=== PATIENT | female | born 1935 | race Caucasian/White ===

== ENCOUNTER 2016-06-03 15:31 | Inpatient (IN) | payer OTHER ==
[~2016-06-03] VITALS: Ht 144.8 cm; Wt 70.9 kg
[2016-06-03] MEDS: metFORMIN 500 MG TAB PO SCH ×2 (08:00→18:00)
[~2016-06-03 15:31] MED LIST: ASPI-664 PO; ATOR40TA68 PO; CEPH-443 PO; ESCI5TAB PO; GABA300C16 PO; LEVO25TA9 PO; LISI10TA2 PO; MAGN400T28 PO; MECL25TA2 PO; MELO-110 PO; METO-448 PO; MTF1000T PO; PANT40TA3 PO; RISP0.253 PO
[2016-06-03] MEDS ORDERED: LABETALOL HCL 20MG INJ IV ONE (16:00)
[2016-06-03 16:47] LABS: BASOPHILS % 0.7 % (0.0-2.0); EOSINOPHILS # 0.1 10^3/ul (0.0-0.5); EOSINOPHILS % 1.2 % (0.0-7.0); HEMATOCRIT 48.3 % (37.0-47.0); HEMOGLOBIN 16.3 g/dl (12.0-16.0); LYMPHOCYTES # 2.3 10^3/ul (0.8-2.9); LYMPHOCYTES % 36.6 % (15.0-51.0); MEAN CORPUSCULAR HEMOGLOBIN 28.3 pg (29.0-33.0); MEAN CORPUSCULAR HGB CONC 33.8 g/dl (32.0-37.0); MEAN CORPUSCULAR VOLUME 83.9 fl (82.0-101.0); MEAN PLATELET VOLUME 8.6 fl (7.4-10.4); MONOCYTE # 0.5 10^3/ul (0.3-0.9); MONOCYTES % 7.3 % (0.0-11.0); NEUTROPHIL # 3.4 10^3/ul (1.6-7.5); NEUTROPHILS % 54.2 % (39.0-77.0); PLATELET COUNT 216 10^3/UL (140-440); RED BLOOD COUNT 5.76 10^6/ul (4.20-5.40); RED CELL DISTRIBUTION WIDTH 13.9 % (11.5-14.5); UNCORRECTED WBC 6.2 10^3/ul (4.8-10.8); WHITE BLOOD COUNT 6.2 10^3/ul (4.8-10.8)
[2016-06-03 16:50] LABS: CONDITION 1
[2016-06-03 16:53] LABS: CHLORIDE 103 mmol/L (97-110); INR 0.97; POTASSIUM 4.1 mmol/L (3.5-5.1); PROTIME 12.9 Sec (12.2-14.2); SODIUM 143 mmol/L (135-144)
[2016-06-03 16:54] LABS: PARTIAL THROMBOPLASTIN TIME 29.9 Sec (25.0-35.0)
[2016-06-03 16:56] LABS: ANION GAP 19 (8-16); BLOOD UREA NITROGEN 25 mg/dl (7-20); CARBON DIOXIDE 25 mmol/L (21-31); CREATININE 1.19 mg/dl (0.44-1.00); GLUCOSE 223 mg/dl (70-220)
[2016-06-03 16:57] LABS: CALCIUM 9.6 mg/dl (8.4-10.2)
[2016-06-03 17:10] LABS: TROPONIN-I < 0.012 ng/ml (0.00-0.12)
[2016-06-03] MEDS ORDERED: hydrALAzine 20 MG INJ IV ONE (17:30)
--- NOTE | 2016-06-03 17:35 | RADRPT ---
PROCEDURE: XR Chest. CLINICAL INDICATION: Chest pain. TECHNIQUE: Single frontal chest x-ray. COMPARISON: Exam dated 09/30/2015. FINDINGS: There are atherosclerotic changes of the aorta. The cardiomediastinal silhouette is within normal l imits. The lungs are clear without focal consolidation, effusion, or pneumothorax. There are no ac yvonne osseous abnormalities. IMPRESSION: 1. No acute cardiopulmonary abnormality. 2. Vascular calcifications consistent with atherosclerosis. RPTAT: GG .Lux Black MD, Date Time Electronically viewed and signed by .Lux Black MD, on 06/03/2016 17:35 .P/
[2016-06-03] MEDS ORDERED: NACL 0.9% 3 ML SYG IV SCH (20:00)
[2016-06-03] MEDS ORDERED: NITROGLYCERIN (SL) 0.4 MG TAB SL PRN (20:00)
[2016-06-03] MEDS ORDERED: morphine 2 MG INJ IV PRN (20:00)
[2016-06-03] MEDS ORDERED: MECLIZINE 25 MG TAB PO PRN (20:00)
[2016-06-03] MEDS ORDERED: ONDANSETRON 4 MG INJ IV PRN ×2 (20:00→21:00)
[2016-06-03] MEDS ORDERED: GLUCAGON 1 MG INJ IM PRN (20:30)
[2016-06-03] MEDS ORDERED: DEXTROSE 50% 50 ML SYRINGE IV PRN ×2 (20:30)
[2016-06-03] MEDS ORDERED: GLUCOSE GEL 15 GRAM TUBE PO PRN ×2 (20:30)
[2016-06-03] MEDS ORDERED: GLUCOSE GEL 15 GRAM TUBE BUCCAL PRN (20:30)
[2016-06-03 20:49] LABS: CREATINE KINASE 54 IU/L (23-200)
[2016-06-03 20:59] LABS: CK-MB 1.29 ng/ml (0.0-2.4)
[2016-06-03] MEDS ORDERED: ACETAMINOPHEN 325 MG TAB PO PRN (21:00)
[2016-06-03 21:03] LABS: TROPONIN-I < 0.012 ng/ml (0.00-0.12)
[2016-06-03 21:10] VITALS: BP 177/75; RESP 20; Ht 144.8 cm; Wt 70.9 kg
[2016-06-03 21:14] VITALS: PULSE 87
--- NOTE | 2016-06-03 21:47 | ERA ---
ER Documentation Chief Complaint Date/Time DATE: 06/03/16 TIME: 21:37 Chief Complaint chest pain, headache; facial pain HPI This 80-year-old female presents with substernal chest pain is been present all day and does not radiate as well as a headache that began gradually yesterday and is now moderate. She also has mild shortness of breath denies nausea. States that she gets headaches sometimes her blood pressure is very high. Denies fever and chills. ROS All systems reviewed and are negative except as per history of present illness. Medications Home Meds Active Scripts Escitalopram Oxalate* (Lexapro*) 5 Mg Tablet, 5 MG PO QHS, #30 TAB Prov:DONNA DELEON MD 09/30/15 Risperidone* (Risperidone*) 0.25 Mg Tablet, 0.25 MG PO QHS for 30 Days, TAB Prov:DONNA DELEON MD 09/30/15 Cephalexin* (Keflex*) 500 Mg Capsule, 500 MG PO BID for 7 Days, CAP Prov:DONNA DELEON MD 09/30/15 Meclizine Hcl* (Antivert*) 25 Mg Tablet, 25 MG PO Q6H Y for dizziness, #20 TAB Prov:ELIGIO STAPLES MD 09/16/15 Meloxicam* (Mobic*) 15 Mg Tab, 15 MG PO DAILY, #30 TAB Prov:AMELIA MORENO 05/20/15 Metoprolol Tartrate* (Lopressor*) 25 Mg Tab, 25 MG PO BID, #60 TAB Prov:WILLIAM COCHRAN MD 04/17/15 Aspirin* (Aspirin* EC) 81 Mg Tabec, 81 MG PO DAILY, #30 Prov:WILLIAM COCHRAN MD 04/17/15 Reported Medications Magnesium Oxide* (Magnesium Oxide*) 400 Mg Tablet, 400 MG PO DAILY, TAB 04/12/15 Lisinopril* (Lisinopril*) 10 Mg Tablet, 10 MG PO DAILY, TAB 04/12/15 Pantoprazole* (Protonix*) 40 Mg Tablet.dr, 40 MG PO DAILY, TAB 04/12/15 Metformin* (Glucophage*) 1,000 Mg Tablet, 1000 MG PO BID W/ MEALS 01/09/13 Atorvastatin* (Atorvastatin*) 40 Mg Tablet, 40 MG PO DAILY 01/09/13 Levothyroxine Sodium (Levothroid) 25 Mcg Tablet, 25 MCG PO DAILY 01/09/13 Gabapentin* (Gabapentin*) 300 Mg Capsule, 300 MG PO DAILY 01/09/13 Allergies Allergies: Coded Allergies: No Known Allergy (Unverified , 09/30/15) PMhx/Soc History of Surgery: Yes Anesthesia Reaction: No Hx Neurological Disorder: Yes ( STROKE) Hx Respiratory Disorders: No Hx Cardiac Disorders: Yes ( HTN) Hx Psychiatric Problems: Yes (ANXIETY) Hx Miscellaneous Medical Probl: Yes (DM) Hx Alcohol Use: No Hx Substance Use: No Hx Tobacco Use: No Smoking Status: Never smoker Physical Exam Vitals Vital Signs Date Time Temp Pulse Resp B/P Pulse Ox O2 Delivery O2 Flow Rate FiO2 06/03/16 17:30 72 18 188/83 100 Room Air 06/03/16 15:36 98.0 87 19 234/111 96 Physical Exam Const: [] No distress, appears mildly uncomfortable Head: Atraumatic Eyes: Normal Conjunctiva, EOMI, PERRLA ENT: Normal External Ears, Nose and Mouth. Mucous membranes of the mouth moist Neck: Full range of motion..~ No meningismus. Resp: Clear to auscultation bilaterally Cardio: Regular rate and rhythm, no murmurs Abd: Soft, non tender, non distended. Normal bowel sounds Skin: No petechiae or rashes Back: No midline or flank tenderness Ext: No cyanosis, or edema Neur: Awake and alert and oriented 3, cranial 2 through 12 intact, no focal deficits Psych: Normal Mood and Affect Result Diagram: 06/03/16 1614 06/03/16 1614 Results 24 hrs Laboratory Tests Test 06/03/16 16:14 06/03/16 19:20 Activated Partial Thromboplast Time 29.9Sec Anion Gap 19 Basophils # 0.010^3/ul Basophils % 0.7% Blood Morphology Comment Blood Urea Nitrogen 25mg/dl Calcium Level 9.6mg/dl Carbon Dioxide Level 25mmol/L Chloride Level 103mmol/L Creatinine 1.19mg/dl Eosinophils # 0.110^3/ul Eosinophils % 1.2% Glucose Level 223mg/dl Hematocrit 48.3% Hemoglobin 16.3g/dl INR International Normalized Ratio 0.97 Lymphocytes # 2.310^3/ul Lymphocytes % 36.6% Mean Corpuscular Hemoglobin 28.3pg Mean Corpuscular Hemoglobin Concent 33.8g/dl Mean Corpuscular Volume 83.9fl Mean Platelet Volume 8.6fl Monocytes # 0.510^3/ul Monocytes % 7.3% Neutrophils # 3.410^3/ul Neutrophils % 54.2% Nucleated Red Blood Cells # 0.010^3/ul Nucleated Red Blood Cells % 0.0/100WBC Platelet Count 69583^3/UL Potassium Level 4.1mmol/L Prothrombin Time 12.9Sec Prothrombin Time Ratio 1.0 Red Blood Count 5.7610^6/ul Red Cell Distribution Width 13.9% Sodium Level 143mmol/L Troponin I < 0.012ng/ml < 0.012ng/ml White Blood Count 6.210^3/ul Creatine Kinase 54IU/L Creatine Kinase Index 2.4 Creatinine Kinase MB (Mass) 1.29ng/ml Current Medications Medications (Trade) Dose Ordered Sig/Lucero Route PRN Reason Start Time Stop Time Status Last Admin Dose Admin Labetalol HCl (Labetalol) 20 mg ONCE ONCE IV 06/03/16 16:00 06/03/16 16:01 DC 06/03/16 16:15 Hydralazine HCl (Apresoline) 10 mg ONCE ONCE IV 06/03/16 17:30 06/03/16 17:31 DC 06/03/16 17:35 IV Flush (NS 3 ml) 3 ml PER PROTOCOL IV 06/03/16 20:00 Ondansetron HCl (Zofran Inj) 4 mg Q6H PRN IV NAUSEA AND/OR VOMITING 06/03/16 20:00 Nitroglycerin (Nitroglycerin (Sl Tab) 0.4 Mg) 1 tab Q5M PRN SL CHEST PAIN 06/03/16 20:00 Acetaminophen (Tylenol Tab) 650 mg Q6H PRN PO PAIN LEVEL 1-3 OR FEVER 06/03/16 20:00 Morphine Sulfate (morphine) 2 mg Q4H PRN IV PAIN LEVEL 7-10 06/03/16 20:00 Meclizine HCl (Antivert) 25 mg Q6H PRN PO dizziness 06/03/16 20:00 Metformin HCl (Glucophage) 1,000 mg WITH BREAKFAST DINNE PO 06/03/16 08:00 Miscellaneous Information (* Miscellaneous Pharmacy Order) HYPOGLYCEMIA PROTOCOL w... ONCE ONCE XX 06/03/16 20:00 06/03/16 20:19 DC Miscellaneous Information (* Miscellaneous Pharmacy Order) Discontinue Glyburide, Glipizide,... ONCE ONCE XX 06/03/16 20:00 06/03/16 20:19 DC Miscellaneous Information (* Miscellaneous Pharmacy Order) Discontinue all previ... ONCE ONCE XX 06/03/16 20:00 06/03/16 20:19 DC Miscellaneous Information 1 ea NOTE XX 06/03/16 20:30 Glucose (Glutose) 15 gm Q15M PRN PO DECREASED GLUCOSE 06/03/16 20:30 Glucose (Glutose) 22.5 gm Q15M PRN PO DECREASED GLUCOSE 06/03/16 20:30 Dextrose (D50w Syringe) 25 ml Q15M PRN IV DECREASED GLUCOSE 06/03/16 20:30 Dextrose (D50w Syringe) 50 ml Q15M PRN IV DECREASED GLUCOSE 06/03/16 20:30 Glucagon (Glucagen) 1 mg Q15M PRN IM DECREASED GLUCOSE 06/03/16 20:30 Glucose (Glutose) 15 gm Q15M PRN BUCCAL DECREASED GLUCOSE 06/03/16 20:30 Procedures/MDM Elderly female with chest pain and hypertensive emergency. Had a been gradually and was reduced with blood pressure control, patient had normal neurological exam and I doubt subarachnoid hemorrhage secondary to the character of the headache is very gradual onset and significant improvement with blood pressure control. Cardiac workup was performed for the chest pain and the patient had a nonischemic EKG and initially negative troponin however acute cardiac seizures not completely ruled out yet as patient does have risk factors. She has laboratory evidence of dehydration with hemoconcentration with high hemoglobin and mild renal insufficiency. She is given a liter of normal saline. Also given aspirin and needed both labetalol and hydralazine to reduce her blood pressure. She was given aspirin. She had definite reduction in chest pain but does have some chest pain still so I'm going to admit her for further workup and trending of troponins. Spoke with Dr. Yadira Singleton who will be admitting. Critical care time 44 minutes: This includes management of hypertensive emergency in a patient with ongoing chest pain and headache, use of multiple vasoactive medications to lower blood pressure, labetalol and hydralazine at per IV, multiple visits patient's bedside to reassess status, chart review, discussion with admitting doctor. No billable procedures. 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 I do see significant calcification of the aorta. Departure Diagnosis: Primary Impression: Chest pain Additional Impressions: Hypertensive emergency Headache Dehydration Hyperglycemia Condition: Stable ERICK PINTO DO Jun 03, 2016 21:47
[2016-06-03] MEDS ORDERED: SOD CHLORIDE 0.9% 1,000 ML IV ONE (22:00)
[2016-06-03] MEDS: FAMOTIDINE 20 MG INJ IV SCH (22:22)
[2016-06-03] MEDS: ESCITALOPRAM 10 MG TAB PO SCH (22:22)
[2016-06-03] MEDS: ACETAMINOPHEN 325 MG TAB PO PRN (22:22)
[2016-06-03] MEDS: METOPROLOL 25 MG TAB PO SCH (22:23)
[2016-06-03] MEDS: INSULIN ASPART [NOVOLOG] 3 ML PEN SC SCH (22:30)
[2016-06-03] MEDS: RISPERIDONE 0.25 MG TAB PO SCH (22:33)
[2016-06-04] VITALS (12 sets, daily range): BP systolic 127–148; BP diastolic 60–76; PULSE 63–77; RESP 19–20
[2016-06-04 01:39] LABS: CK-MB 1.48 ng/ml (0.0-2.4)
[2016-06-04 01:43] LABS: TROPONIN-I 0.012 ng/ml (0.00-0.12)
[2016-06-04] MEDS: ACCUCHECK AT 2AM (Patients on SS coverage) XX SCH (02:00)
[2016-06-04 07:08] LABS: BASOPHILS % 0.7 % (0.0-2.0); EOSINOPHILS % 0.7 % (0.0-7.0); HEMATOCRIT 39.8 % (37.0-47.0); HEMOGLOBIN 13.3 g/dl (12.0-16.0); LYMPHOCYTES # 1.6 10^3/ul (0.8-2.9); LYMPHOCYTES % 29.1 % (15.0-51.0); MEAN CORPUSCULAR HEMOGLOBIN 28.4 pg (29.0-33.0); MEAN CORPUSCULAR HGB CONC 33.5 g/dl (32.0-37.0); MEAN CORPUSCULAR VOLUME 84.8 fl (82.0-101.0); MEAN PLATELET VOLUME 8.6 fl (7.4-10.4); MONOCYTE # 0.5 10^3/ul (0.3-0.9); MONOCYTES % 9.4 % (0.0-11.0); NEUTROPHIL # 3.3 10^3/ul (1.6-7.5); NEUTROPHILS % 60.1 % (39.0-77.0); PLATELET COUNT 198 10^3/UL (140-440); RED BLOOD COUNT 4.69 10^6/ul (4.20-5.40); UNCORRECTED WBC 5.5 10^3/ul (4.8-10.8); WHITE BLOOD COUNT 5.5 10^3/ul (4.8-10.8)
[2016-06-04 07:10] LABS: CONDITION 1
[2016-06-04 07:24] LABS: CREATINE KINASE 71 IU/L (23-200)
[2016-06-04 07:29] LABS: CK-MB 1.38 ng/ml (0.0-2.4)
[2016-06-04 07:33] LABS: TROPONIN-I < 0.012 ng/ml (0.00-0.12)
[2016-06-04 07:45] LABS: ALBUMIN 2.8 g/dl (3.3-4.9)
[2016-06-04 07:46] LABS: POTASSIUM 4.4 mmol/L (3.5-5.1)
[2016-06-04 07:48] LABS: ALBUMIN/GLOBULIN RATIO 1.07; BILIRUBIN,INDIRECT 0.5 mg/dl (0-1.1); BILIRUBIN,TOTAL 0.5 mg/dl (0.2-1.3); CREATININE 1.2 mg/dl (0.44-1.00); TOTAL PROTEIN 5.4 g/dl (6.1-8.1)
[2016-06-04 07:49] LABS: CALCIUM 8.8 mg/dl (8.4-10.2); CHOL/HDL RATIO 4.6 RATIO
[2016-06-04] MEDS: INSULIN ASPART [NOVOLOG] 3 ML PEN SC SCH ×4 (08:00→20:25)
[2016-06-04] MEDS: ATORVASTATIN 40 MG TAB PO SCH (09:00)
[2016-06-04] MEDS: FAMOTIDINE 20 MG INJ IV SCH (09:35)
[2016-06-04] MEDS: METOPROLOL 25 MG TAB PO SCH ×2 (09:35→20:22)
[2016-06-04] MEDS: MAGNESIUM OXIDE 400 MG TAB PO SCH (09:36)
[2016-06-04] MEDS: GABAPENTIN 300 MG CAP PO SCH (09:36)
[2016-06-04] MEDS: ASPIRIN 81 MG TAB PO SCH (09:36)
[2016-06-04] MEDS: LEVOTHYROXINE 25 MCG TAB PO SCH (09:36)
[2016-06-04] MEDS: LISINOPRIL 10 MG TAB PO SCH (09:36)
[2016-06-04] MEDS: MELOXICAM 15 MG TAB PO SCH (09:37)
[2016-06-04] MEDS: metFORMIN 500 MG TAB PO SCH ×2 (09:45→17:07)
[2016-06-04] MEDS: ENOXAPARIN 30 MG/0.3 ML SYG SC SCH (09:48)
--- NOTE | 2016-06-04 12:36 | HP ---
Date/Time of Note Date/Time of Note DATE: 06/04/16 TIME: 12:34 Assessment/Plan VTE Prophylaxis VTE Prophylaxis Intervention: LMWH Lines/Catheters IV Catheter Type (from Nrs): Saline Lock Assessment/Plan Chief Complaint/Hosp Course 1) chest pain - myocardial infarction ruled out - order echocardiologram to reevaluate 2) diabetes mellitus - monitor blood sugar Problems: HPI/ROS Admit Date/Time Admit Date/Time Jun 03, 2016 at 20:36 Hx of Present Illness Patient with hypertension, diabetes, hypercholesterolemia comes in with chest pain. Patient had recent admission for the same and was deemed to not have acute coronary syndrome. Patient is here again for the same. She also complain of pain in neck and arms, shortness of breath. PMH/Family/Social Past Medical History Medical History: diabetes, high cholesterol, hypertension Social History Smoking Status: Never smoker Exam/Review of Systems Vital Signs Vitals Vital Signs Date Time Temp Pulse Resp B/P Pulse Ox O2 Delivery O2 Flow Rate FiO2 06/04/16 12:05 72 06/04/16 11:22 98.1 20 129/62 94 06/03/16 21:10 Room Air Exam Constitutional: well developed Head: atraumatic, normocephalic Respiratory: clear to auscultation Cardiovascular: regular rate and rhythm Gastrointestinal: non-tender, soft Extremities: normal pulses Labs Result Diagram: 06/04/16 0525 06/04/16 0525 Medications Medications Current Medications Ondansetron HCl (Zofran Inj) 4 mg Q6H PRN IV NAUSEA AND/OR VOMITING; Start at 20:00 Aspirin (Aspirin) 81 mg DAILY PO Last administered on 06/04/16 09:36; Admin Dose 81 MG; Start 06/04/16 at 09:00 Nitroglycerin (Nitroglycerin (Sl Tab) 0.4 Mg) 1 tab Q5M PRN SL CHEST PAIN; Start 06/03/16 at 20:00 Acetaminophen (Tylenol Tab) 650 mg Q6H PRN PO PAIN LEVEL 1-3 OR FEVER Last administered on 06/03/16 22:22; Admin Dose 650 MG; Start 06/03/16 at 20:00 Morphine Sulfate (morphine) 2 mg Q4H PRN IV PAIN LEVEL 7-10; Start 06/03/16 at 20:00 Famotidine (Pepcid Iv) 20 mg Q12 IV Last administered on 06/04/16 09:35; Admin Dose 20 MG; Start 06/03/16 at 21:00 Enoxaparin Sodium (Lovenox) 30 mg DAILY SC Last administered on 06/04/16 09:48 ; Admin Dose 30 MG; Start 06/04/16 at 09:00 Atorvastatin Calcium (Lipitor) 40 mg DAILY PO Last administered on 06/04/16 09 :00; Admin Dose 40 MG; Start 06/04/16 at 09:00 Escitalopram Oxalate (Lexapro) 5 mg QHS PO Last administered on 06/03/16 22:22 ; Admin Dose 5 MG; Start 06/03/16 at 21:00 Gabapentin (Neurontin) 300 mg DAILY PO Last administered on 06/04/16 09:36; Admin Dose 300 MG; Start 06/04/16 at 09:00 Lisinopril (Zestril) 10 mg DAILY PO Last administered on 06/04/16 09:36; Admin Dose 10 MG; Start 06/04/16 at 09:00 Magnesium Oxide (Mag-Ox 400) 400 mg DAILY PO Last administered on 06/04/16 09: 36; Admin Dose 400 MG; Start 06/04/16 at 09:00 Meclizine HCl (Antivert) 25 mg Q6H PRN PO dizziness; Start 06/03/16 at 20:00 Meloxicam (Mobic) 15 mg DAILY PO Last administered on 06/04/16 09:37; Admin Dose 15 MG; Start 06/04/16 at 09:00 Metoprolol Tartrate (Lopressor) 25 mg BID PO Last administered on 06/04/16 09: 35; Admin Dose 25 MG; Start 06/03/16 at 21:00 Risperidone (Risperdal) 0.25 mg QHS PO Last administered on 06/03/16 22:33; Admin Dose 0.25 MG; Start 06/03/16 at 21:00 Diagnostic Test (Pha) (Accucheck) 1 ea 02 XX ; Start 06/04/16 at 02:00 Miscellaneous Information 1 ea NOTE XX ; Start 06/03/16 at 20:30 Glucose (Glutose) 15 gm Q15M PRN PO DECREASED GLUCOSE; Start 1/21/17 at 20:30 Glucose (Glutose) 22.5 gm Q15M PRN PO DECREASED GLUCOSE; Start 06/03/16 at 20: 30 Dextrose (D50w Syringe) 25 ml Q15M PRN IV DECREASED GLUCOSE; Start 06/03/16 at 20:30 Dextrose (D50w Syringe) 50 ml Q15M PRN IV DECREASED GLUCOSE; Start 06/03/16 at 20:30 Glucagon (Glucagen) 1 mg Q15M PRN IM DECREASED GLUCOSE; Start 06/03/16 at 20:30 Glucose (Glutose) 15 gm Q15M PRN BUCCAL DECREASED GLUCOSE; Start 06/03/16 at 20 :30 MY CHRISTIE Jun 04, 2016 12:36
[2016-06-04] MEDS: ACETAMINOPHEN 325 MG TAB PO PRN (14:51)
[2016-06-04] MEDS: RISPERIDONE 0.25 MG TAB PO SCH (20:22)
[2016-06-04] MEDS: ESCITALOPRAM 10 MG TAB PO SCH (20:22)
[2016-06-05] VITALS (13 sets, daily range): BP systolic 125–184; BP diastolic 61–81; PULSE 50–72; RESP 17–20
[2016-06-05] MEDS: ACCUCHECK AT 2AM (Patients on SS coverage) XX SCH (01:25)
[2016-06-05] MEDS: LEVOTHYROXINE 25 MCG TAB PO SCH (06:45)
[2016-06-05] MEDS: metFORMIN 500 MG TAB PO SCH ×2 (08:41→17:55)
[2016-06-05] MEDS: ASPIRIN 81 MG TAB PO SCH (08:42)
[2016-06-05] MEDS: ATORVASTATIN 40 MG TAB PO SCH (08:42)
[2016-06-05] MEDS: MAGNESIUM OXIDE 400 MG TAB PO SCH (08:44)
[2016-06-05] MEDS: METOPROLOL 25 MG TAB PO SCH (08:44)
[2016-06-05] MEDS: GABAPENTIN 300 MG CAP PO SCH (08:45)
[2016-06-05] MEDS: MELOXICAM 15 MG TAB PO SCH (08:45)
[2016-06-05] MEDS: FAMOTIDINE 20 MG TAB PO SCH (08:45)
[2016-06-05] MEDS: ENOXAPARIN 30 MG/0.3 ML SYG SC SCH (08:46)
[2016-06-05] MEDS: LISINOPRIL 10 MG TAB PO SCH (08:46)
[2016-06-05] MEDS: INSULIN ASPART [NOVOLOG] 3 ML PEN SC SCH ×4 (08:51→21:00)
--- NOTE | 2016-06-05 15:45 | CONS ---
DATE OF ADMISSION: 06/03/2016 DATE OF CONSULTATION: 06/05/2016 TYPE OF CONSULTATION: Cardiology. REASON FOR CONSULTATION: Chest pain, assess for acute coronary syndrome. REQUESTING PHYSICIAN: Yadira Christie MD and Jarod Weeks MD. HISTORY OF PRESENT ILLNESS: Mr. Ya is a 80-year-old female well known to myself from sarita or hospital admissions and primary office visits. The patient carries a history of hypertension, dy slipidemia, hypothyroidism, diabetes mellitus who initially presented with complaints of substernal chest pain. The patient, of note, has had a stress test which was negative for ischemia in April 2015 with EF of 70%. Upon arrival in the emergency department, temperature of 98, blood pressure markedly elevated 234/111, pulse 87, respirations 19, satting 96%. The patient's labs revealed a wh ite count 6.2, hemoglobin 6.3, platelet count 216. Sodium of 143, potassium 4.1, creatinine 1.1, BU N of 25. Troponin negative. INR 0.97. The patient underwent a chest x-ray revealing no acute card iopulmonary abnormalities. The patient's electrocardiogram revealed normal sinus rhythm rate of 84, normal axis, normal intervals, with biphasic T-wave abnormalities in lateral leads. Patient subseq uently admitted to the floor and since being admitted to the floor has had 2 additional troponins, r uling out for acute myocardial infarction. The patient denies ongoing chest pain at this time. PAST MEDICAL HISTORY: As above in HPI. MEDICATIONS CURRENTLY IN HOSPITAL: 1. Pepcid. 2. Clonidine. 3. Aspirin 81 mg daily. 4. Lovenox 60 daily. 5. Lipitor 40 mg at bedtime. 6. Gabapentin 300 mg daily. 7. Zestril 10 mg daily. 8. Mobic ____ mcg 9. Lexapro 5 mg at bedtime. 10. Metoprolol 25 mg p.o. b.i.d. 11. Risperdal 0.25 mg at bedtime. 12. Insulin sliding scale. ALLERGIES: NO KNOWN DRUG ALLERGIES. SOCIAL HISTORY: No tobacco, ETOH or illicit drug use. FAMILY HISTORY: No history of sudden cardiac or early CAD. REVIEW OF SYSTEMS: As above in HPI. CONSTITUTIONAL: No fevers, chills. PULMONARY: No shortness of breath. CARDIOVASCULAR: Intermittent chest pain. GASTROINTESTINAL: No vomiting. GENITOURINARY: No hematuria. MUSCULOSKELETAL: Degenerative joint disease. PSYCHIATRIC: The patient denies depression. NEUROLOGIC: No documented history of CVA. PHYSICAL EXAMINATION VITAL SIGNS: Temperature 97.8, blood pressure 125/61, pulse 56, respiratory rate 18, saturating 98% . GENERAL: The patient is alert, awake, in no acute distress. NECK: JVP approximately 8 to 9 cm water. CHEST: Fair air movement throughout. HEART: Bradycardic, regular rhythm, normal S1, S2 with 1/6 systolic murmur, nondisplaced PMI. ABDOMEN: Positive bowel sounds, soft. EXTREMITIES: No edema, 1+ pulses bilaterally, posterior tibial. LABORATORIES: As above in [facility] with most recently from today, sodium 142, potassium 4.4, creatinine 1.2, BUN of 26. Troponin negative x3. LDL 126, HDL 41. White blood cell count 5.5, hemoglobin 13. 3, platelet count 198. IMAGING STUDIES: As above in [facility]. No further imaging studies for my review at this time. ECG: As above in [facility] with followup EKG from the revealing normal sinus rhythm, rate 84, normal axis with borderline increased QT corrected interval with biphasic T-wave abnormalities in the late ral leads. IMPRESSION: 1. Chest pain, assess for acute coronary syndrome. 2. Abnormal electrocardiogram, assess for acute coronary syndrome. 3. Hypertension. 4. Dyslipidemia. 5. Renal insufficiency. 6. Psychiatric disorder. 7. Hypothyroidism. RECOMMENDATIONS: 1. At this time would maintain patient on telemetry monitoring to follow rhythm and rate closely. 2. Continue the patient's aspirin for prophylaxis against cardiovascular events. 3. We will give the patient sublingual nitroglycerin for recurrent episodes of chest pain. 4. Continue the patient's current baseline beta chico for control of heart rate and blood pressur e as well as Zestril. 5. Continue the patient's statin and adjust it according to a fasting lipid panel to be checked. 6. We will follow patient's 2D echo which has been ordered for reassessment of ejection fraction, w all motion and any major abnormalities. We will consider a cardiac stress test in this patient to f christiano evaluate the possibility of ischemia leading to her symptoms of chest pain in this patient wi th hypertension, high cholesterol and abnormal electrocardiographic findings. Dictated By: GERMAN OGDEN/ELIZABETH Conf#: [id number] DID#: [id number] CC: YADIRA CHRISTIE MD;*End*
[2016-06-05] MEDS: RISPERIDONE 0.25 MG TAB PO SCH (21:14)
[2016-06-05] MEDS: ESCITALOPRAM 10 MG TAB PO SCH (21:15)
--- NOTE | 2016-06-05 22:31 | PN ---
DATE: 06/05/2016 SUBJECTIVE: Follow up on chest pain, hypertension, and diabetes. The patient denies any chest pain today. No reported fever or chills. No reported bleeding from any site. The patient is breathing comfortably and is saturating 97% on room air. The patient did have significant bradycardia with h eart rate dropping to as low as 50. The patient's metoprolol will be withheld and she will be monit ored on tele. The patient did not have any fever or chills. No reported bleeding from any site. T he patient was seen by Dr. Salgado from cardiac standpoint and is considering a nuclear stress test. Echocardiogram result is pending. PHYSICAL EXAMINATION: GENERAL: The patient is conscious, awake, alert. VITAL SIGNS: Temperature 97.9, pulse 53, respirations 17, blood pressure 149/66, O2 saturation 97% on room air. HEENT: Conjunctivae and lids normal. Oropharynx clear. NECK: Supple. No mass, no thyromegaly. CHEST: Clear to auscultation. CARDIOVASCULAR: S1, S2 normal. No murmur, gallop, or rub. ABDOMEN: Soft, nondistended, nontender. No palpable mass. EXTREMITIES: No clubbing, cyanosis. NEUROLOGIC: The patient is awake, alert with no gross focal deficit. LABORATORY DATA: WBC 5.5, hemoglobin 13.6, platelets 198. Chemistry revealed glucose of 166, sodiu m 142, potassium 4.4, BUN 26, creatinine 1.2. Troponin negative x4. IMPRESSION: 1. Chest pain, myocardial infarction ruled out. 2. Hypertension. 3. Diabetes mellitus. 4. Dyslipidemia. PLAN: For now, will hold off on Zestril. Will continue metformin and sliding scale insulin for tamiko betes. The patient will be continued on aspirin. Lipitor for dyslipidemia. The patient's LDL is 1 26. The patient's blood sugar readings are reasonably controlled. No episodes of hypoglycemia. Fu rther recommendations depend on patient's hospital course and recommendations from Dr. Salgado. [facility], we will continue Lovenox for DVT prophylaxis. Dictated By: WILLIAM COCHRAN MD AB/NTS Conf#: [id number] DID#: [id number] CC: MY CHRISTIE MD;*EndCC*
--- NOTE | 2016-06-05 22:35 | RADRPT ---
Echocardiogram Report Patient Name: FRITZ BARROSO Gender: Female Date: 1935 Study Date: 04-Jun-2016 Outboard Motor Inspector: VIANCA Location: I Ref. Physician: MY CHRISTIE Quality: Adequate Procedures: Transthoracic echocardiogram examination, poor subcostals and no parasternal images. Indications: Chest Pain. 2D/M Mode Doppler Measurement Value Normal Range Measurement Value Normal Range IVSd 2D 2.2 0.6 - 1.1 cm AV Peak Ousmane 1.1 m/sec AoR Diam 2D 3.2 2.0 - 3.7 cm AV Peak PG 4.6 mmHg LA Dimen 2D 4.2 2.3 - 4.0 cm LVOT Peak Ousmane 1.0 m/sec MV E Peak Ousmane 0.5 m/sec MV A Peak Ousmane 1.0 m/sec MV E/A 0.4 MV Decel Time 268 msec MV Decel Nobles 2 MV E/A 0.4 TR Peak Ousmane 2.8 m/sec TR Peak PG 31.4 mmHg RVSP 34.4 mmHg Findings Left Ventricle: Normal left ventricular cavity size. Hyperdynamic left ventricular systolic function. Tissue Doppler/Mitral Doppler indices are consistent with impaired relaxation (Stage I diastolic dysfunction). Moderate concentric left ventricular hypertrophy. The left ventricular ejection fraction is visually estimated at 70 %. Right Ventricle: Normal right ventricular size. Normal right ventricular systolic function. Left Atrium: There is mild to moderate enlargement of left atrium. Right Atrium: The right atrium is normal in size and appearance. Atrial Septum: Normal atrial septum. Mitral Valve: Normal appearance of the mitral valve leaflets. Mild mitral regurgitation. Aortic Valve: Normal appearance and function of the aortic valve imaged from apicals only. No hemodynamically significant aortic stenosis by Doppler. No aortic regurgitation. Tricuspid Valve: Normal appearance of the tricuspid valve. The estimated Peak RVSP is 34 mmHg. There is mild tricuspid regurgitation. Pulmonic Valve: The pulmonic valve is not well visualized. Pericardium: Normal pericardium with no significant pericardial effusion. Aorta: Normal aortic root. IVC: Normal inferior vena cava appearance. Pulmonary Artery: Pulmonary artery is not well visualized. Conclusions Normal left ventricular cavity size. Hyperdynamic left ventricular systolic function. Tissue Doppler/Mitral Doppler indices are consistent with impaired relaxation (Stage I diastolic dysfunction). Moderate concentric left ventricular hypertrophy. The left ventricular ejection fraction is visually estimated at 70 %. Normal right ventricular size. Normal right ventricular systolic function. There is mild to moderate enlargement of left atrium. The right atrium is normal in size and appearance. Normal appearance of the mitral valve leaflets. Mild mitral regurgitation. The estimated Peak RVSP is 34 mmHg. There is mild tricuspid regurgitation. No hemodynamically significant aortic stenosis by Doppler. No aortic regurgitation. Normal pericardium with no significant pericardial effusion. Electronically Signed By: Jim Nelson 05-Jun-2016 22:34:49 -0800 Patient Name: FRITZ BARROSO Study Date: [id number]
[2016-06-06] VITALS (12 sets, daily range): BP systolic 145–185; BP diastolic 64–79; PULSE 56–107; RESP 16–20
[2016-06-06] MEDS: ACCUCHECK AT 2AM (Patients on SS coverage) XX SCH (02:00)
[2016-06-06 07:42] LABS: CHOL/HDL RATIO 4.3 RATIO
[2016-06-06] MEDS: metFORMIN 500 MG TAB PO SCH ×2 (08:00→18:02)
[2016-06-06] MEDS: INSULIN ASPART [NOVOLOG] 3 ML PEN SC SCH ×4 (08:00→20:19)
[2016-06-06] MEDS: LEVOTHYROXINE 25 MCG TAB PO SCH (09:31)
[2016-06-06] MEDS: ASPIRIN 81 MG TAB PO SCH (09:32)
[2016-06-06] MEDS: ATORVASTATIN 40 MG TAB PO SCH (09:32)
[2016-06-06] MEDS: MAGNESIUM OXIDE 400 MG TAB PO SCH (09:33)
[2016-06-06] MEDS: FAMOTIDINE 20 MG TAB PO SCH (09:33)
[2016-06-06] MEDS: GABAPENTIN 300 MG CAP PO SCH (09:33)
[2016-06-06] MEDS: MELOXICAM 15 MG TAB PO SCH (09:37)
[2016-06-06] MEDS: LISINOPRIL 10 MG TAB PO SCH (09:37)
[2016-06-06] MEDS: ENOXAPARIN 30 MG/0.3 ML SYG SC SCH (09:41)
[2016-06-06] MEDS ORDERED: REGADENOSON 0.4 MG/5 ML SYG ONE (12:22)
[2016-06-06] MEDS ORDERED: hydrALAzine 20 MG INJ ONE (13:18)
--- NOTE | 2016-06-06 15:47 | RADRPT ---
PROCEDURE: Lexiscan myocardial perfusion study CLINICAL INDICATION: 80 -year-old patient complaining of chest pain. TECHNIQUE: Lexiscan 0.4 mg intravenously separate acquisition gated myocardial perfusion SPECT usi ng Tc 99m Myoview 30.3 mCi intravenously at stress and Tc-99m Myoview, 10.3 mCi intravenously at res t was performed using the rest/stress sequence. Poststress Myoview SPECT images were obtained in th e supine position. COMPARISON: January 10, 2013. FINDINGS: Perfusion images reveal no evidence of perfusion defects. Lexiscan post stress gated SPECT images demonstrate no wall motion abnormalities. IMPRESSION: 1. No evidence of new perfusion defects. 2. No new wall motion abnormalities. 3. The left ventricle ejection fraction at stress is greater than 70%, unchanged since the previous study. RPTAT: HH .Anisa Madrigal MD, Date Time Electronically viewed and signed by .Anisa Madrigal MD, on 06/06/2016 15:46 .L/
--- NOTE | 2016-06-06 16:50 | CONS ---
Date/Time of Note Date/Time of Note DATE: 06/06/16 TIME: 16:41 Assessment/Plan Assessment/Plan Chief Complaint/Hosp Course IMPRESSION: 1. Chest pain, assess for acute coronary syndrome.-neg troponinx 3 2. Abnormal electrocardiogram, assess for acute coronary syndrome. 3. Hypertension-uncontrolled 4. Dyslipidemia. 5. Renal insufficiency. 6. Psychiatric disorder. 7. Hypothyroidism. 8.Bradycardia-to 50's-High TSH/NL T4 Recc: -Tele -serial ecg's -Continue asa/statin -Increase zestril to improve SBP control -BB held secondary to bradycardia -Lexiscan stress test today Problems: Consultation Date/Type/Reason Admit Date/Time Jun 03, 2016 at 20:36 Initial Consult Date 06/05/2016 Type of Consultation: Cardiology Reason for Consultation Chest pain Referring Provider: WILLIAM COCHRAN MD Exam/Review of Systems Vital Signs Vitals Vital Signs Date Time Temp Pulse Resp B/P Pulse Ox O2 Delivery O2 Flow Rate FiO2 06/06/16 15:30 98.0 81 16 157/70 98 06/05/16 04:00 Room Air Intake and Output 06/05/16 06/05/16 06/06/16 15:00 23:00 07:00 Intake Total 1200 ml 120 ml Balance 1200 ml 120 ml Exam Review of Systems: CONSTITUTIONAL: No fevers, chills. PULMONARY: No sob CARDIOVASCULAR:intermittent chest pain GASTROINTESTINAL: No nausea/vomiting. GENITOURINARY: No hematuria/dysuria. MUSCULOSKELETAL: No myagias/arthalgias. PSYCHIATRIC: The patient denies depression. NEUROLOGIC: No weakness Constitutional: alert Psych: no complaints Head: normocephalic ENMT: mucosa pink and moist Neck: jvd (9 cm water), supple Respiratory: clear to auscultation Cardiovascular: regular rate and rhythm Gastrointestinal: non-tender, soft Musculoskeletal: muscle tone (normal) Extremities: edema (none) Neurological: other (No focal deficits) Results Result Diagram: 06/04/16 0525 06/04/16 0525 Results 24 hrs Laboratory Tests Test 06/05/16 17:49 06/05/16 21:16 06/06/16 06:24 06/06/16 06:28 Bedside Glucose 166 157 Thyroid Stimulating Hormone (TSH) 5.590 H Hemoglobin A1c 8.0 H Test 06/06/16 06:29 06/06/16 09:29 Cholesterol Level 171 Cholesterol/HDL Ratio 4.3 Free Thyroxine 1.06 HDL Cholesterol 39 LDL Cholesterol, Calculated 92 Triglycerides Level 198 H Bedside Glucose 111 Medications Medications Current Medications Ondansetron HCl (Zofran Inj) 4 mg Q6H PRN IV NAUSEA AND/OR VOMITING; Start at 20:00 Aspirin (Aspirin) 81 mg DAILY PO Last administered on 06/06/16 09:32; Admin Dose 81 MG; Start 06/04/16 at 09:00 Nitroglycerin (Nitroglycerin (Sl Tab) 0.4 Mg) 1 tab Q5M PRN SL CHEST PAIN; Start 06/03/16 at 20:00 Acetaminophen (Tylenol Tab) 650 mg Q6H PRN PO PAIN LEVEL 1-3 OR FEVER Last administered on 06/04/16 14:51; Admin Dose 650 MG; Start 06/03/16 at 20:00 Morphine Sulfate (morphine) 2 mg Q4H PRN IV PAIN LEVEL 7-10; Start 06/03/16 at 20:00 Enoxaparin Sodium (Lovenox) 30 mg DAILY SC Last administered on 06/06/16 09:41 ; Admin Dose 30 MG; Start 06/04/16 at 09:00 Atorvastatin Calcium (Lipitor) 40 mg DAILY PO Last administered on 06/06/16 09 :32; Admin Dose 40 MG; Start 06/04/16 at 09:00 Escitalopram Oxalate (Lexapro) 5 mg QHS PO Last administered on 06/05/16 21:15 ; Admin Dose 5 MG; Start 06/03/16 at 21:00 Gabapentin (Neurontin) 300 mg DAILY PO Last administered on 06/06/16 09:33; Admin Dose 300 MG; Start 06/04/16 at 09:00 Lisinopril (Zestril) 10 mg DAILY PO Last administered on 06/06/16 09:37; Admin Dose 10 MG; Start 06/04/16 at 09:00 Magnesium Oxide (Mag-Ox 400) 400 mg DAILY PO Last administered on 06/06/16 09: 33; Admin Dose 400 MG; Start 06/04/16 at 09:00 Meclizine HCl (Antivert) 25 mg Q6H PRN PO dizziness; Start 06/03/16 at 20:00 Meloxicam (Mobic) 15 mg DAILY PO Last administered on 06/06/16 09:37; Admin Dose 15 MG; Start 06/04/16 at 09:00 Risperidone (Risperdal) 0.25 mg QHS PO Last administered on 06/05/16 21:14; Admin Dose 0.25 MG; Start 06/03/16 at 21:00 Diagnostic Test (Pha) (Accucheck) 1 ea 02 XX ; Start 06/04/16 at 02:00 Miscellaneous Information 1 ea NOTE XX ; Start 06/03/16 at 20:30 Glucose (Glutose) 15 gm Q15M PRN PO DECREASED GLUCOSE; Start 06/03/16 at 20:30 Glucose (Glutose) 22.5 gm Q15M PRN PO DECREASED GLUCOSE; Start 06/03/16 at 20: 30 Dextrose (D50w Syringe) 25 ml Q15M PRN IV DECREASED GLUCOSE; Start 06/03/16 at 20:30 Dextrose (D50w Syringe) 50 ml Q15M PRN IV DECREASED GLUCOSE; Start 06/03/16 at 20:30 Glucagon (Glucagen) 1 mg Q15M PRN IM DECREASED GLUCOSE; Start 06/03/16 at 20:30 Glucose (Glutose) 15 gm Q15M PRN BUCCAL DECREASED GLUCOSE; Start 06/03/16 at 20 :30 Famotidine (Pepcid) 20 mg DAILY PO Last administered on 06/06/16 09:33; Admin Dose 20 MG; Start 06/05/16 at 09:00 Miscellaneous Information Patients own medicat... BID@ XX ; Start 06/05/16 at 10:00 Clonidine (Catapres) 0.1 mg Q6H PRN PO ELEVATED SYSTOLIC BP Last administered on 06/05/16 06:46; Admin Dose 0.1 MG; Start 06/05/16 at 05:30 GERMAN OVALLE Jun 06, 2016 16:50
[2016-06-06] MEDS ORDERED: hydrALAzine 20 MG INJ IV PRN (17:00)
[2016-06-06] MEDS: NIFEdipine (XL) 30 MG TAB PO SCH (18:04)
[2016-06-06] MEDS: ESCITALOPRAM 10 MG TAB PO SCH (20:17)
[2016-06-06] MEDS: RISPERIDONE 0.25 MG TAB PO SCH (20:17)
[2016-06-06] MEDS: LISINOPRIL 20 MG TAB PO SCH (20:18)
--- NOTE | 2016-06-06 23:17 | CARRPT ---
DATE OF PROCEDURE: 06/06/2016 PROCEDURE: Lexiscan Cardiolite stress test, electrocardiogram portion. INDICATION: Chest pain, assess for ischemia. BASELINE VITAL SIGNS AND ELECTROCARDIOGRAM: Pulse 59, blood pressure elevated at 178/[address] art of this procedure. EKG revealed sinus bradycardia at 59, normal axis, normal intervals with non specific ST and T abnormalities. PROCEDURE: The patient underwent standard Lexiscan infusion protocol over 10 seconds followed by ra diolabeled tracer. The patient's test was stopped due to completion of protocol. Maximal achieved blood pressure during the test 195/86. Maximal heart rate during the test 83. ELECTROCARDIOGRAM FINDINGS: The patient did not develop any new Lexiscan-induced ST or T-wave ventura es from baseline abnormalities, had occasional PACs. No PVCs. SYMPTOMS: The patient had complaints of headache, stomachache during stress test and resolved in re covery. IMPRESSION: 1. No Lexiscan-induced ST or T-wave changes from baseline abnormalities diagnostic of cardiac ische marlen. 2. No complaints of chest pain or shortness of breath during stress testing. 3. No documented premature ventricular contractions during stress test. 4. Report of nuclear images to follow in separate dictation. Dictated By: GERMAN OGDEN/ELIZABETH Conf#: [id number] DID#: [id number] CC: WILLIAM COCHRAN MD;*EndCC*
[2016-06-07] VITALS (9 sets, daily range): BP systolic 121–155; BP diastolic 53–71; PULSE 73–90; RESP 16–18
[2016-06-07] MEDS: ACCUCHECK AT 2AM (Patients on SS coverage) XX SCH (02:45)
[2016-06-07 07:03] LABS: BASOPHILS % 0.5 % (0.0-2.0); EOSINOPHILS # 0.1 10^3/ul (0.0-0.5); EOSINOPHILS % 1.5 % (0.0-7.0); HEMOGLOBIN 13.2 g/dl (12.0-16.0); LYMPHOCYTES % 33.4 % (15.0-51.0); MEAN CORPUSCULAR HEMOGLOBIN 28.7 pg (29.0-33.0); MEAN CORPUSCULAR HGB CONC 33.8 g/dl (32.0-37.0); MEAN CORPUSCULAR VOLUME 84.7 fl (82.0-101.0); MEAN PLATELET VOLUME 8.3 fl (7.4-10.4); MONOCYTE # 0.5 10^3/ul (0.3-0.9); MONOCYTES % 8.4 % (0.0-11.0); NEUTROPHIL # 3.3 10^3/ul (1.6-7.5); NEUTROPHILS % 56.2 % (39.0-77.0); PLATELET COUNT 195 10^3/UL (140-440); RED CELL DISTRIBUTION WIDTH 13.9 % (11.5-14.5)
[2016-06-07 07:07] LABS: CONDITION 1
[2016-06-07 07:20] LABS: POTASSIUM 4.3 mmol/L (3.5-5.1)
[2016-06-07 07:23] LABS: CALCIUM 8.9 mg/dl (8.4-10.2); CREATININE 1.15 mg/dl (0.44-1.00)
[2016-06-07] MEDS ORDERED: LEVOTHYROXINE 25 MCG TAB PO SCH (07:30)
[2016-06-07] MEDS: LISINOPRIL 20 MG TAB PO SCH (08:19)
[2016-06-07] MEDS: NIFEdipine (XL) 30 MG TAB PO SCH (08:20)
[2016-06-07] MEDS: ASPIRIN 81 MG TAB PO SCH (08:20)
[2016-06-07] MEDS: FAMOTIDINE 20 MG TAB PO SCH (08:20)
[2016-06-07] MEDS: GABAPENTIN 300 MG CAP PO SCH (08:20)
[2016-06-07] MEDS: ATORVASTATIN 40 MG TAB PO SCH (08:20)
[2016-06-07] MEDS: MELOXICAM 15 MG TAB PO SCH (08:20)
[2016-06-07] MEDS: metFORMIN 500 MG TAB PO SCH (08:20)
[2016-06-07] MEDS: INSULIN ASPART [NOVOLOG] 3 ML PEN SC SCH ×2 (08:23→12:23)
[2016-06-07] MEDS: ENOXAPARIN 30 MG/0.3 ML SYG SC SCH (08:27)
[2016-06-07] MEDS: MAGNESIUM OXIDE 400 MG TAB PO SCH (09:00)
--- NOTE | 2016-06-07 14:04 | CONS ---
Date/Time of Note Date/Time of Note DATE: 06/07/16 TIME: 14:02 Assessment/Plan Assessment/Plan Additional Assessment/Plan 1. Chest pain, assess for acute coronary syndrome.-neg troponinx 3 - s/p STRESS TEST - EF 65%, no ischemia noted 2. Abnormal electrocardiogram, assess for acute coronary syndrome- no intervention planned 3. Hypertension- better now, con't to optimize 4. Dyslipidemia. 5. Renal insufficiency- stable Cr now 6. Psychiatric disorder. 7. Hypothyroidism. 8.Bradycardia-to 50's-High TSH/NL T4 - stable, no indication for pacer now Consultation Date/Type/Reason Admit Date/Time Jun 03, 2016 at 20:36 Initial Consult Date Type of Consultation: Cardiology Referring Provider: WILLIAM COCHRAN MD 24 HR Interval Summary Free Text/Dictation NO acute change. Negative cardiac stress test now. ROS: No fever, no chills, no nausea, no vomiting, no diarrhea/constipation No recent weight changes No chest pain, no PND, no orthopnea No dizziness, blurred vision No thirst, no heat or cold intolerance Exam/Review of Systems Vital Signs Vitals Vital Signs Date Time Temp Pulse Resp B/P Pulse Ox O2 Delivery O2 Flow Rate FiO2 06/07/16 12:48 73 06/07/16 11:56 97.8 18 146/67 98 06/07/16 00:00 Room Air Intake and Output 06/06/16 06/06/16 06/07/16 15:00 23:00 07:00 Intake Total 120 ml Balance 120 ml Exam General: WN/WD/NAD, AOx 1-2 HEENT: Unicetric/atraumatic/EOMI (does not follow commands) NECK: JVD elevated, no thyromegaly Lymph: no lymphadenopathy HEART: regular with no S3, II/ systolic murmur at apex LUNGS: Coarse sounds ABD: soft, NT, ND, +BS : Intact Neuro: non focal SKIN: chronic changes EXT: trace edema Results Result Diagram: 06/07/16 0555 06/07/16 0555 Results 24 hrs Laboratory Tests Test 06/06/16 17:58 06/06/16 20:14 06/07/16 02:44 06/07/16 05:55 Bedside Glucose 147 194 112 Anion Gap 13 Basophils # 0.0 Basophils % 0.5 Blood Morphology Comment Blood Urea Nitrogen 34 H Calcium Level 8.9 Carbon Dioxide Level 26 Chloride Level 106 Creatinine 1.15 H Eosinophils # 0.1 Eosinophils % 1.5 Glucose Level 115 Hematocrit 39.0 Hemoglobin 13.2 Lymphocytes # 2.0 Lymphocytes % 33.4 Mean Corpuscular Hemoglobin 28.7 L Mean Corpuscular Hemoglobin Concent 33.8 Mean Corpuscular Volume 84.7 Mean Platelet Volume 8.3 Monocytes # 0.5 Monocytes % 8.4 Neutrophils # 3.3 Neutrophils % 56.2 Nucleated Red Blood Cells # 0.0 Nucleated Red Blood Cells % 0.0 Platelet Count 195 Potassium Level 4.3 Red Blood Count 4.60 Red Cell Distribution Width 13.9 Sodium Level 141 White Blood Count 6.0 Test 06/07/16 08:07 06/07/16 12:04 Bedside Glucose 150 148 Medications Medications Current Medications Ondansetron HCl (Zofran Inj) 4 mg Q6H PRN IV NAUSEA AND/OR VOMITING; Start at 20:00 Aspirin (Aspirin) 81 mg DAILY PO Last administered on 06/07/16 08:20; Admin Dose 81 MG; Start 06/04/16 at 09:00 Nitroglycerin (Nitroglycerin (Sl Tab) 0.4 Mg) 1 tab Q5M PRN SL CHEST PAIN; Start 06/03/16 at 20:00 Acetaminophen (Tylenol Tab) 650 mg Q6H PRN PO PAIN LEVEL 1-3 OR FEVER Last administered on 06/04/16 14:51; Admin Dose 650 MG; Start 06/03/16 at 20:00 Morphine Sulfate (morphine) 2 mg Q4H PRN IV PAIN LEVEL 7-10; Start 06/03/16 at 20:00 Enoxaparin Sodium (Lovenox) 30 mg DAILY SC Last administered on 06/07/16 08:27 ; Admin Dose 30 MG; Start 06/04/16 at 09:00 Atorvastatin Calcium (Lipitor) 40 mg DAILY PO Last administered on 06/07/16 08 :20; Admin Dose 40 MG; Start 06/04/16 at 09:00 Escitalopram Oxalate (Lexapro) 5 mg QHS PO Last administered on 06/06/16 20:17 ; Admin Dose 5 MG; Start 06/03/16 at 21:00 Gabapentin (Neurontin) 300 mg DAILY PO Last administered on 06/07/16 08:20; Admin Dose 300 MG; Start 06/04/16 at 09:00 Magnesium Oxide (Mag-Ox 400) 400 mg DAILY PO Last administered on 06/07/16 09: 00; Admin Dose 400 MG; Start 06/04/16 at 09:00 Meclizine HCl (Antivert) 25 mg Q6H PRN PO dizziness; Start 06/03/16 at 20:00 Meloxicam (Mobic) 15 mg DAILY PO Last administered on 06/07/16 08:20; Admin Dose 15 MG; Start 06/04/16 at 09:00 Risperidone (Risperdal) 0.25 mg QHS PO Last administered on 06/06/16 20:17; Admin Dose 0.25 MG; Start 06/03/16 at 21:00 Diagnostic Test (Pha) (Accucheck) 1 ea 02 XX Last administered on 06/07/16 02: 45; Admin Dose 1 EA; Start 06/04/16 at 02:00 Miscellaneous Information 1 ea NOTE XX ; Start 06/03/16 at 20:30 Glucose (Glutose) 15 gm Q15M PRN PO DECREASED GLUCOSE; Start 06/03/16 at 20:30 Glucose (Glutose) 22.5 gm Q15M PRN PO DECREASED GLUCOSE; Start 06/03/16 at 20: 30 Dextrose (D50w Syringe) 25 ml Q15M PRN IV DECREASED GLUCOSE; Start 06/03/16 at 20:30 Dextrose (D50w Syringe) 50 ml Q15M PRN IV DECREASED GLUCOSE; Start 06/03/16 at 20:30 Glucagon (Glucagen) 1 mg Q15M PRN IM DECREASED GLUCOSE; Start 06/03/16 at 20:30 Glucose (Glutose) 15 gm Q15M PRN BUCCAL DECREASED GLUCOSE; Start 06/03/16 at 20 :30 Famotidine (Pepcid) 20 mg DAILY PO Last administered on 06/07/16 08:20; Admin Dose 20 MG; Start 06/05/16 at 09:00 Miscellaneous Information Patients own medicat... BID@10,16 XX ; Start 06/05/16 at 10:00 Clonidine (Catapres) 0.1 mg Q6H PRN PO ELEVATED SYSTOLIC BP Last administered on 06/05/16 06:46; Admin Dose 0.1 MG; Start 06/05/16 at 05:30 Lisinopril (Zestril) 20 mg BID PO Last administered on 06/07/16 08:19; Admin Dose 20 MG; Start 06/06/16 at 21:00 Nifedipine (Procardia Xl) 30 mg DAILY PO Last administered on 06/07/16 08:20; Admin Dose 30 MG; Start 06/06/16 at 17:00 Hydralazine HCl (Apresoline) 10 mg Q4H PRN IV SBP>170; Start 06/06/16 at 17:00 HUDSON SNYDER MD Jun 07, 2016 14:04
--- NOTE | 2016-06-07 14:48 | RADRPT ---
Vent Rate: 61 bpm RR Interval: 0 msec RI Interval: 162 msec QRS Duration: 82 msec QT Interval: 444 msec QTC Interval: 446 msec P-R-T [place]: 38 - 19 - 94 degrees Normal sinus rhythm Anterior infarct , age undetermined Abnormal ECG Electronically Signed By: Francisco Castro [id number]
[2016-06-07] MEDS ORDERED: NIFE30TA2 PO (15:59)
[2016-06-07] MEDS ORDERED: LEVO25TA53 PO (15:59)
[2016-06-07] MEDS ORDERED: LISI20TA11 PO (15:59)
--- NOTE | 2016-06-10 23:15 | DS ---
DATE OF ADMISSION: 06/03/2016 DATE OF DISCHARGE: 06/07/2016 FINAL DIAGNOSES: 1. Chest pain on admission, rule out acute coronary syndrome, status post stress test with no ische marlen noted and negative troponin. 2. Hypertension. 3. Diabetes mellitus type 2. 4. Dyslipidemia. 5. Hypothyroidism. BRIEF HISTORY: The patient is a 80-year-old female with history of hypertension, diabetes, hypercho lesterolemia, who presented to the emergency room with complaint of chest pain. Patient also compla ined of shortness of breath. Patient was admitted for further evaluation and management. HOSPITAL COURSE: The patient underwent a chest x-ray, which revealed no acute cardiopulmonary abnor mality, and vascular calcifications consistent with atherosclerosis. The patient underwent echocard iogram, which revealed stage I diastolic dysfunction with ejection fraction of 70%. Patient was destiny luated by Dr. Salgado in cardiology consultation. The patient's cardiac enzymes were found to be ne gative x3. The patient was closely monitored on telemetry floor, as well as by cardiology. The pat ient noted to have elevated TSH of 5.59. The patient's Synthroid dose was increased to 50 mcg p.o. before breakfast. The patient's blood sugar was closely monitored and well controlled. The patient 's condition improved. The patient denied any chest pain, and the patient was discharged home. CONDITION ON DISCHARGE: Hemodynamically stable. ACTIVITY: As patient tolerates. DIET: An 1800 ADA 2-gram sodium, low-fat/low-cholesterol diet. MEDICATIONS ON DISCHARGE: Patient was given prescriptions for: 1. Levothyroxine 50 mcg before breakfast. 2. Lisinopril 20 mg p.o. b.i.d. 3. Procardia-XL 30 mg p.o. daily. The patient is continued on: 1. Aspirin. 2. Atorvastatin. 3. . 4. Gabapentin. 5. Magnesium oxide. 6. Meclizine p.r.n. for dizziness. 7. Mobic. 8. Metformin 1000 mg p.o. b.i.d. 9. Protonix 40 mg p.o. daily. 10. Risperidone 0.5 mg p.o. at bedtime. RECOMMENDATIONS: Patient is instructed to follow up with primary care physician in 1-2 weeks. Interdisciplinary plan of care was established for this patient. Plan of care was discussed with Dr Chelsey Weeks. Dictated By: AMELIA MORENO PROGRAMMING ENGINEER for WILLIAM WEEKS MD SR/NTS Conf#: [id number] DID#: [id number]
== END 2016-06-07 17:38 | disposition home or self-care (01) | DRG 313 ==
LOC: E/R 15:31 → MS4 20:36
PROVIDERS: ADMIT Internal Medicine; ATTEND Internal Medicine
DX: R07.9 Chest pain, unspecified (principal); E11.9 Type 2 diabetes mellitus without complications; R00.1 Bradycardia, unspecified; I16.1 Hypertensive emergency; E78.5 Hyperlipidemia, unspecified; E03.9 Hypothyroidism, unspecified; N28.9 Disorder of kidney and ureter, unspecified; F99 Mental disorder, not otherwise specified
CPT/HCPCS: 36415; 71010; 78452; 80048; 80053; 80061; 82550; 82553; 82962; 83036; 84439; 84443; 84484; 85025; 85610; 85730; 93005; 93017; 93306; 96374; 96375; A9500; A9505; J0360; J1650; J1815; J2785; J7030

== ENCOUNTER 2017-04-02 16:35 | Emergency (ER) | payer OTHER ==
[~2017-04-02] VITALS: Ht 165.1 cm; Wt 69.1 kg
[~2017-04-02 16:35] MED LIST changes: -CEPH-443 PO; +LEVO25TA53 PO; -LEVO25TA9 PO; -LISI10TA2 PO; +LISI20TA11 PO; -MELO-110 PO; +MELO-210 PO; -METO-448 PO; +NIFE30TA2 PO
[2017-04-02 16:44] VITALS: Ht 165.1 cm; Wt 69.1 kg
[2017-04-02] MEDS ORDERED: ACETAMINOPHEN 500 MG TAB PO STA (19:16)
[2017-04-02] MEDS ORDERED: SOD CHLORIDE 0.9% 1,000 ML IV STA (19:16)
[2017-04-02] MEDS ORDERED: ASPIRIN 81 MG TAB PO ONE (19:30)
[2017-04-02 19:46] LABS: BASOPHILS % 0.5 % (0.0-2.0); EOSINOPHILS # 0.3 10^3/ul (0.0-0.5); EOSINOPHILS % 3.4 % (0.0-7.0); HEMATOCRIT 40.7 % (37.0-47.0); HEMOGLOBIN 13.6 g/dl (12.0-16.0); LYMPHOCYTES # 2.3 10^3/ul (0.8-2.9); LYMPHOCYTES % 30.6 % (15.0-51.0); MEAN CORPUSCULAR HEMOGLOBIN 28.5 pg (29.0-33.0); MEAN CORPUSCULAR HGB CONC 33.4 g/dl (32.0-37.0); MEAN CORPUSCULAR VOLUME 85.3 fl (82.0-101.0); MEAN PLATELET VOLUME 9.8 fl (7.4-10.4); MONOCYTE # 0.7 10^3/ul (0.3-0.9); NEUTROPHIL # 4.2 10^3/ul (1.6-7.5); NEUTROPHILS % 56.1 % (39.0-77.0); PLATELET COUNT 282 10^3/UL (140-415); RED BLOOD COUNT 4.77 10^6/ul (4.20-5.40); RED CELL DISTRIBUTION WIDTH 13.4 % (11.5-14.5); WHITE BLOOD COUNT 7.5 10^3/ul (4.8-10.8)
[2017-04-02 20:04] LABS: ALBUMIN 4.2 g/dl (3.3-4.9); ALBUMIN/GLOBULIN RATIO 1.27; BILIRUBIN,INDIRECT 0.5 mg/dl (0-1.1); BILIRUBIN,TOTAL 0.5 mg/dl (0.2-1.3); CALCIUM 10.2 mg/dl (8.4-10.2); CREATININE 1.16 mg/dl (0.44-1.00); POTASSIUM 4.5 mmol/L (3.5-5.1); TOTAL PROTEIN 7.5 g/dl (6.1-8.1)
[2017-04-02] MEDS ORDERED: morphine 4 MG/ML VIAL IV STA (20:06)
[2017-04-02] MEDS ORDERED: LIDOCAINE/MYLANTA 40 ML BTL PO ONE (20:30)
[2017-04-02] MEDS ORDERED: LORAZEPAM 2 MG INJ IV ONE (20:30)
[2017-04-02 20:50] LABS: ADD UMIC YES; UR ASCORBIC ACID NEGATIVE (NEGATIVE); UR BACTERIA FEW /HPF (NONE SEEN); UR BILIRUBIN (Dip) NEGATIVE (NEGATIVE); UR BLOOD (Dip) NEGATIVE (NEGATIVE); UR CLARITY CLEAR (CLEAR); UR COLOR STRAW (YELLOW); UR GLUCOSE (Dip) 1+ mg/dL (NEGATIVE); UR KETONES (Dip) NEGATIVE (NEGATIVE); UR LEUKOCYTE ESTERASE (Dip) TRACE Leu/ul (NEGATIVE); UR NITRITE (Dip) NEGATIVE (NEGATIVE); UR RBC 0 /HPF (0-5); UR SPECIFIC GRAVITY (Dip) 1.005 (1.003-1.030); UR TOTAL PROTEIN (Dip) 2+ mg/dl (NEGATIVE); UR UROBILINOGEN (Dip) NEGATIVE (NEGATIVE)
--- NOTE | 2017-04-02 21:35 | ERD ---
ER Documentation Chief Complaint Chief Complaint CP, MARTELL & WEAKNESS [id number], feels like food not digesting HPI This 81-year-old female presents with sharp chest pain, headache, weakness, bilateral foot pain going on for a week. He is also only had mild bilateral lower abdominal pain. Denies dysuria. Also has a sensation of something is stuck in her neck in the throat and thinks that her food is not digesting properly ROS All systems reviewed and are negative except as per history of present illness. Medications Home Meds Active Scripts Ciprofloxacin Hcl* (Ciprofloxacin Hcl*) 500 Mg Tablet, 500 MG PO BID, #14 TAB Prov:ERICK PINTO DO 04/02/17 Nitrofurantoin Monohyd Macrocr* (Macrobid*) 100 Mg Capsr, 100 MG PO BID, #10 CAP Prov:ERICK PINTO 04/02/17 Ranitidine Hcl* (Zantac*) 150 Mg Tablet, 150 MG PO BID, #60 TAB Prov:ERICK PINTO 04/02/17 Lisinopril* (Lisinopril*) 20 Mg Tablet, 20 MG PO BID for 30 Days, TAB Prov:AMELIA MORENO 06/07/16 Nifedipine (Procardia Xl) 30 Mg Tab.er.24, 30 MG PO DAILY for 30 Days, TAB Prov:AMELIA MORENO 06/07/16 Levothyroxine Sodium* (Levothyroxine Sodium*) 25 Mcg Tablet, 50 MCG PO AC BREAKFAST for 30 Days, TAB Prov:AMELIA MORENO 06/07/16 Escitalopram Oxalate* (Lexapro*) 5 Mg Tablet, 5 MG PO QHS, #30 TAB Prov:DONNA DELEON MD 09/30/15 Risperidone* (Risperidone*) 0.25 Mg Tablet, 0.25 MG PO QHS for 30 Days, TAB Prov:DONNA DELEON MD 09/30/15 Meclizine Hcl* (Antivert*) 25 Mg Tablet, 25 MG PO Q6H Y for dizziness, #20 TAB Prov:ELIGIO STAPLES MD 09/16/15 Meloxicam* (Mobic*) 15 Mg Tab, 15 MG PO DAILY, #30 TAB Prov:AMELIA MORENO 1/7/16 Aspirin* (Aspirin* EC) 81 Mg Tabec, 81 MG PO DAILY, #30 Prov:WILLIAM COCHRAN MD 04/17/15 Reported Medications Magnesium Oxide* (Magnesium Oxide*) 400 Mg Tablet, 400 MG PO DAILY, TAB 04/12/15 Pantoprazole* (Protonix*) 40 Mg Tablet.dr, 40 MG PO DAILY, TAB 04/12/15 Metformin* (Glucophage*) 1,000 Mg Tablet, 1000 MG PO BID W/ MEALS 01/09/13 Atorvastatin* (Atorvastatin*) 40 Mg Tablet, 40 MG PO DAILY 01/09/13 Gabapentin* (Gabapentin*) 300 Mg Capsule, 300 MG PO DAILY 01/09/13 Allergies Allergies: Coded Allergies: No Known Allergy (Unverified , 09/30/15) PMhx/Soc Medical and Surgical Hx: pt denies Surgical Hx History of Surgery: No Anesthesia Reaction: No Hx Neurological Disorder: No Hx Respiratory Disorders: No Hx Cardiac Disorders: No Hx Psychiatric Problems: Yes (depression) Hx Miscellaneous Medical Probl: Yes (Hypertension) Hx Alcohol Use: No Hx Substance Use: No Hx Tobacco Use: No Smoking Status: Never smoker Physical Exam Vitals Vital Signs Date Time Temp Pulse Resp B/P Pulse Ox O2 Delivery O2 Flow Rate FiO2 04/02/17 19:05 98.6 90 27 173/81 98 Room Air 04/02/17 16:44 98.3 100 20 173/78 97 Physical Exam Const: [] Mild distress, appears anxious Head: Atraumatic Eyes: Normal Conjunctiva ENT: Normal External Ears, Nose and Mouth. Neck: Full range of motion..~ No DVD Resp: Clear to auscultation bilaterally Cardio: Regular rate and rhythm, no murmurs Abd: Soft, non tender, non distended. Normal bowel sounds Skin: No petechiae or rashes Back: No midline or flank tenderness Ext: No cyanosis, or edema, pulses intact all 4 extremities. No deformities of feet with excellent capillary refill. Neur: Awake and alert and oriented 3, no focal deficits Psych: She is Result Diagram: 04/02/17190404/02/171904 Results 24 hrs Laboratory Tests Test 04/02/17 19:05 04/02/17 19:15 04/02/17 20:40 White Blood Count 7.510^3/ul Red Blood Count 4.7710^6/ul Hemoglobin 13.6g/dl Hematocrit 40.7% Mean Corpuscular Volume 85.3fl Mean Corpuscular Hemoglobin 28.5pg Mean Corpuscular Hemoglobin Concent 33.4g/dl Red Cell Distribution Width 13.4% Platelet Count 50287^3/UL Mean Platelet Volume 9.8fl Neutrophils % 56.1% Lymphocytes % 30.6% Monocytes % 9.0% Eosinophils % 3.4% Basophils % 0.5% Nucleated Red Blood Cells % 0.0/100WBC Neutrophils # 4.210^3/ul Lymphocytes # 2.310^3/ul Monocytes # 0.710^3/ul Eosinophils # 0.310^3/ul Basophils # 0.010^3/ul Nucleated Red Blood Cells # 0.010^3/ul Sodium Level 142mmol/L Potassium Level 4.5mmol/L Chloride Level 99mmol/L Carbon Dioxide Level 30mmol/L Anion Gap 18 Blood Urea Nitrogen 25mg/dl Creatinine 1.16mg/dl Glucose Level 207mg/dl Lactic Acid Level 1.3mmol/L Calcium Level 10.2mg/dl Total Bilirubin 0.5mg/dl Direct Bilirubin 0.00mg/dl Indirect Bilirubin 0.5mg/dl Aspartate Amino Transf (AST/SGOT) 22IU/L Alanine Aminotransferase (ALT/SGPT) 26IU/L Alkaline Phosphatase 102IU/L B-Type Natriuretic Peptide 172PG/ML Total Protein 7.5g/dl Albumin 4.2g/dl Globulin 3.30g/dl Albumin/Globulin Ratio 1.27 Lipase 90U/L Bedside Glucose 202mg/dL Urine Color STRAW Urine Clarity CLEAR Urine pH 8.0 Urine Specific [place] 1.005 Urine Ketones NEGATIVEmg/dL Urine Nitrite NEGATIVEmg/dL Urine Bilirubin NEGATIVEmg/dL Urine Urobilinogen NEGATIVEmg/dL Urine Leukocyte Esterase TRACELeu/ul Urine Microscopic RBC 0/HPF Urine Microscopic WBC 4/HPF Urine Bacteria FEW/HPF Urine Hemoglobin NEGATIVEmg/dL Urine Glucose 1+mg/dL Urine Total Protein 2+mg/dl Current Medications Medications (Trade) Dose Ordered Sig/Lucero Route PRN Reason Start Time Stop Time Status Last Admin Dose Admin Sodium Chloride (NS) 1,000 ml @ 1,000 mls/hr Q1H STAT IV 04/02/17 19:16 11/20/17 20:15 DC 04/02/17 19:49 Aspirin (Aspirin) 324 mg ONCE ONCE PO 04/02/17 19:30 04/02/17 19:36 DC 04/02/17 19:54 Acetaminophen (Tylenol Tab) 1,000 mg ONCE STAT PO 04/02/17 19:16 04/02/17 19:20 DC 04/02/17 19:49 Miscellaneous Medication (Gi Cocktail (2)) 40 ml ONCE ONCE PO 04/02/17 20:30 04/02/17 20:31 DC 04/02/17 21:17 Lorazepam (Ativan) 1 mg ONCE ONCE IV 04/02/17 20:30 04/02/17 20:31 DC 04/02/17 20:47 Morphine Sulfate (morphine) 4 mg ONCE STAT IV 04/02/17 20:06 04/02/17 20:07 DC 04/02/17 20:47 Procedures/MDM Elderly female with atypical chest pain it does not appear related to cardiac ischemia currently as well as likely contribution from anxiety and urinary tract infection which would be complicated secondary to the patient's age. Negative troponin after 5 days of the same type of chest pain, no signs of sepsis or overwhelming infection. Patient is stable and I believe she is appropriate for outpatient treatment of any of her both ciprofloxacin and Macrobid for her UTI. I am recommending an EGD as an outpatient to check for possible vocal erosive esophagitis is reason for feeling something stuck in throat is soft tissue neck is negative for any foreign body or stricture, also referral for outpatient echocardiogram to check cardiac function and referral for outpatient oncology consult for bilateral adrenal adenomas. Patient was given aspirin as well as morphine for her pain is feeling better. She also hydrated with a liter of normal saline for mild renal insufficiency. EKG interpretation: This tachycardia rate of 106, normal axis, no ST or T-wave changes concerning for acute ischemia, QTC of 475 and UT 162, abnormal EKG. Monitor interpretation: Sinus tachycardia in triage fell by normal sinus rhythm throughout with no arrhythmias CT abdomen pelvis interpretation: No pulmonary infiltrates, I see no acute process. No obstruction, no free air, no abnormal fat stranding, does have bilateral adrenal adenomas, diverticulosis. No fractures Departure Diagnosis: Primary Impression: Chest pain Additional Impressions: Mass of both adrenal glands Renal insufficiency Bilateral foot pain Anxiety Sensation of foreign body in esophagus Condition: Stable ERICK PINTO DO Apr 02, 2017 21:35
--- NOTE | 2017-04-02 22:05 | RADRPT ---
PROCEDURE: CT soft tissue neck without contrast. CLINICAL INDICATION: Foreign body sensation in the neck, neck pain. TECHNIQUE: The study was performed utilizing a GE 64-slice multidetector CT scanner. Direct thin s ection helically acquired axial sections were obtained through the neck without contrast. Coronal a nd sagittal reformations were obtained. One or more the following dose reduction techniques were uti lized: Automated exposure control, adjustment of the mA/ or kV according to patient's size, or use of iterative reconstruction technique. DICOM images are available for review. The images were revie wed on a PACS workstation. The CTDIvol is 9.0 mGy and the DLP is 175.6 mGycm. COMPARISON: No prior studies are available for comparison. FINDINGS: The nasopharynx, oropharynx, hypopharynx, and larynx are all normal in appearance. The thyroid glan d appears somewhat heterogeneous without a discrete nodule seen. There appear to be coarse calcifica tions along the inferior margin of the thyroid gland. The submandibular and parotid glands are unre markable and normal in appearance. No pathologically enlarged lymph nodes are detected. Severe dis c space narrowing is seen at C5-6 with probable mild central stenosis and moderate foraminal narrowi ng. No radiopaque foreign bodies are seen. As upon a retention cyst in the right maxillary sinus and mucoperiosteal thickening in the left maxillary sinus likely reflecting sequelae from chronic sinus itis. IMPRESSION: 1. No radiopaque foreign body seen within the soft tissues of the neck. 2. Slight heterogeneity of the thyroid gland with small calcifications but no discrete nodule. 3. The soft tissues of the neck are otherwise grossly unremarkable. RPTAT: HJAH .Reta Souza MD, Date Time Electronically viewed and signed by .Reta Souza MD, on 04/02/2017 22:05 .H/
--- NOTE | 2017-04-02 22:17 | RADRPT ---
PROCEDURE: CT abdomen and pelvis without contrast. CLINICAL INDICATION: Abdominal pain. TECHNIQUE: CT scan of the abdomen and pelvis without contrast was performed on a multislice [facility] utilizing axial imaging from the lung bases through the pubis symphysis. The patient was scann ed without intravenous contrast. One or more the following does reduction techniques were utilized: Automated exposure control, adjustment of the mA/ or kV according to patient's size, or use of ite rative reconstruction technique. Oral contrast was not administered. Sagittal and coronal reformat jl images were made. DICOM images are available for review. The CTDIvol is 17.2 mGy and the DLP is 963.1 mGycm. COMPARISON: None. FINDINGS: There is bibasilar atelectasis, and trace right pleural effusion. Mild cardiomegaly is evident. No s ignificant pericardial effusion is seen. There is a moderate size hiatal hernia. The liver and spleen are grossly unremarkable. The gallbladder appears grossly normal on CT. The hurt creas is normal in appearance. Bilateral adrenal nodules are evident, each of which demonstrate Houn sfield units well below 10, compatible with benign adenomas. The right adenoma measures approximatel y 2.0 x 1.5 cm, and the left approximately 2.6 x 2.1 cm. Small nonobstructing renal calculi are seen in the kidneys bilaterally, measuring approximately 4 mm each. The ureters are unremarkable. Diffuse diverticulosis is evident without convincing evidence of acute diverticulitis. The most nume farhad diverticula are seen in the proximal sigmoid colon. The appendix is well seen and normal in amber earance. No free fluid or free air is evident. No pelvic mass lesion is seen. There is evidence of s ubcutaneous air in the lower abdominal wall bilaterally, presumably from recent subcutaneous injecti ons. The osseous structures are notable for multilevel discogenic disease, most pronounced in the lo wer thoracic and upper lumbar region. Small sclerotic lesions are seen in the ilium bilaterally, whi ch have the appearance of bone islands. Extensive vascular calcifications are seen. IMPRESSION: 1. No evidence of acute intra-abdominal or pelvic pathology. 2. Bilateral adrenal adenomas measuring up to 2 cm in length on the right and 2.6 cm in length on t he left. 3. Small nonobstructing renal calculi. 4. Diffuse diverticulosis, most promptly involving the proximal sigmoid colon. There are no finding s to suggest acute diverticulitis. RPTAT: HJAH .Reta Souza MD, Date Time Electronically viewed and signed by .Reta Souza MD, MD on 04/02/2017 22:17 .H/
[2017-04-02] MEDS ORDERED: NITR-58 PO (22:30)
[2017-04-02] MEDS ORDERED: CIPR500T4 PO (22:30)
[2017-04-02] MEDS ORDERED: RANI150T9 PO (22:30)
[2017-04-02] MEDS ORDERED: ONDA4TAB11 PO (23:22)
[2017-04-02 23:29] VITALS: BP 132/88; PULSE 72; RESP 20; TEMP 98.6
== END 2017-04-02 23:32 | disposition home or self-care (01) ==
LOC: E/R 16:35
DX: D35.02 Benign neoplasm of left adrenal gland (principal); D35.01 Benign neoplasm of right adrenal gland; N28.9 Disorder of kidney and ureter, unspecified; M79.672 Pain in left foot; M79.671 Pain in right foot; F41.9 Anxiety disorder, unspecified; I10 Essential (primary) hypertension; R06.02 Shortness of breath; Z79.84 Long term (current) use of oral hypoglycemic drugs; Z79.82 Long term (current) use of aspirin
CPT/HCPCS: 36415; 70490; 74176; 80053; 81001; 82962; 83605; 83690; 83880; 85025; 93005; 96374; 96375; 99285; J2060; J2270; J7030

== ENCOUNTER 2017-08-23 20:50 | Emergency (ER) | END 2017-08-24 09:18 | disposition home or self-care (01) ==

== ENCOUNTER → 2017-12-15 | Emergency (ER) | END | disposition home or self-care (01) ==

== ENCOUNTER 2018-02-20 10:17 | Emergency (ER) | END 2018-02-20 13:47 | disposition home or self-care (01) ==

== ENCOUNTER 2018-05-02 17:38 | Observation (INO) | END 2018-05-05 15:30 | disposition home or self-care (01) ==

== ENCOUNTER 2018-10-14 15:44 | Emergency (ER) | payer OTHER ==
[~2018-10-14] VITALS: Wt 68.1 kg
[~2018-10-14 15:44] MED LIST changes: +ALBU18HF INHALATION; -ASPI-664 PO; -ATOR40TA68 PO; +CHOL200056 PO; +DICL100G37 TOP; -ESCI5TAB PO; +FENO130C6 PO; +GABA100C14 PO; -GABA300C16 PO; +GUAI-95 PO; +KETO5DRO71 OP; +LANT3I SC; -LEVO25TA53 PO; -LISI20TA11 PO; -MAGN400T28 PO; -MECL25TA2 PO; -MELO-210 PO; -MTF1000T PO; -NIFE30TA2 PO; +NOVO7030 SC; -PANT40TA3 PO; -RISP0.253 PO
[2018-10-14] MEDS ORDERED: ASPIRIN 81 MG TAB PO STA (16:33)
--- NOTE | 2018-10-14 16:50 | ERD ---
ER Documentation Chief Complaint Chief Complaint CHEST PAIN SINCE THIS MORNING. NO N/V. NON TRAUMATIC. MILD SOB HPI 82-year-old female with a history of CVA, hypertension, diabetes brought in by daughter for chest pain that started late last night. She complains of pressure-like chest pain with a feeling of a choking sensation in her throat and associated shortness of breath. She is having numbness and tingling of her hands and feet as well. Her symptoms are intermittent, nonexertional, with no alleviating or exacerbating factors. She has a right-sided throbbing headache as well that is moderate in intensity, similar to previous headaches she has had. No associated vision disturbance, nausea, vomiting, diarrhea, or fevers. She does complain of subjective chills. No abdominal pain, dysuria. Per the patient, she has had anxiety in the past and her symptoms are similar to those episodes. ROS All systems reviewed and are negative except as per history of present illness. Medications Home Meds Reported Medications Cholecalciferol (Vitamin D3) (Vitamin D-3) 2,000 Unit Tablet, 2000 UNIT PO DAILY, TAB 05/02/18 Fenofibrate, Micronized (Fenofibrate) 130 Mg Capsule, 130 MG PO DAILY, CAP 05/02/18 Ketotifen Fumarate (ZADITOR) 5 Ml Drops, 1 DROP OP QID, BOTTLE 05/02/18 Diclofenac Sodium* (Voltaren* Gel) 1% -100 Gm Gel, 2 GM TOP BID PRN for PAIN, #1 TUB 02/20/18 Insulin Isophan/Regular (Humulin 70/30) 100 Units/Ml Susp, 25 UNIT SC BID, EA 02/20/18 Insulin Glargine* (Lantus*) 100 Unit/Ml Soln, 40 UNIT SC QHS, #1 VIAL 02/20/18 Albuterol Sulfate* (Ventolin HFA*) 18 Gm Hfa.aer.ad, 2 PUFF INHALATION DAILY PRN for WHEEZING AND SOB, #1 INHALER 02/20/18 Guaifenesin/Dextromethorphan (Diabetic Tussin DM*) 118 Ml Liquid, 5 ML PO QID PRN for COUGH, BOTTLE 02/20/18 Gabapentin* (Gabapentin*) 100 Mg Capsule, 100 MG PO QHS, #90 CAP 02/20/18 Allergies Allergies: Coded Allergies: No Known Allergy (Unverified , 12/20/18) PMhx/Soc History of Surgery: Yes (Benign tumor removed from breast, Hysterectomy) Anesthesia Reaction: No Hx Neurological Disorder: Yes (CVA, right side weakness) Hx Respiratory Disorders: No Hx Cardiac Disorders: Yes (HTN, High cholesterol, pacemaker removed 2 years ago) Hx Psychiatric Problems: No Hx Miscellaneous Medical Probl: Yes (Ovarian cysts) Hx Alcohol Use: No Hx Substance Use: No Hx Tobacco Use: No FmHx Family History: No diabetes Physical Exam Vitals Vital Signs Date Temp Pulse Resp B/P (MAP) Pulse Ox O2 O2 Flow FiO2 Time Delivery Rate 10/14/18 71 20 129/51 98 Room Air 17:38 (77) 10/14/18 98.1 85 20 192/85 98 15:49 (120) Physical Exam Const: Tearful, appears to be in mild distress, nontoxic Head: Atraumatic Eyes: Normal Conjunctiva, PERRLA, EOMI, no nystagmus ENT: Normal External Ears, Nose and Mouth. Posterior oropharynx normal without swelling. No stridor or drooling. Normal phonation Neck: Full range of motion. No meningismus. No cervical lymphade nopathy or swelling of the soft tissues Resp: Clear to auscultation bilaterally Cardio: Regular rate and rhythm, no murmurs. 2+ distal pulses equal in all 4 extremities Abd: Soft, non tender, non distended. Normal bowel sounds Skin: No petechiae or rashes Back: No midline or flank tenderness Ext: No cyanosis, or edema Neur: Awake and alert Psych: Anxious, tearful Result Diagram: 10/14/18 1658 10/14/18 1658 Results 24 hrs Laboratory Tests Test 10/14/18 16:58 White Blood Count 9.7 10^3/ul Red Blood Count 4.99 10^6/ul Hemoglobin 13.6 g/dl Hematocrit 41.0 % Mean Corpuscular Volume 82.2 fl Mean Corpuscular Hemoglobin 27.3 pg Mean Corpuscular Hemoglobin Concent 33.2 g/dl Red Cell Distribution Width 14.3 % Platelet Count 307 10^3/UL Mean Platelet Volume 9.5 fl Immature Granulocytes % 0.400 % Neutrophils % 57.6 % Lymphocytes % 31.3 % Monocytes % 8.5 % Eosinophils % 1.5 % Basophils % 0.7 % Nucleated Red Blood Cells % 0.0 /100WBC Immature Granulocytes # 0.040 10^3/ul Neutrophils # 5.6 10^3/ul Lymphocytes # 3.0 10^3/ul Monocytes # 0.8 10^3/ul Eosinophils # 0.2 10^3/ul Basophils # 0.1 10^3/ul Nucleated Red Blood Cells # 0.0 10^3/ul Sodium Level 142 mmol/L Potassium Level 3.9 mmol/L Chloride Level 110 mmol/L Carbon Dioxide Level 21 mmol/L Anion Gap 11 Blood Urea Nitrogen 31 mg/dl Creatinine 1.70 mg/dl Est Glomerular Filtrat Rate mL/min mL/min Glucose Level 102 mg/dl Calcium Level 10.3 mg/dl Troponin I < 0.012 ng/ml Current Medications Medications Dose Sig/Lucero Start Time Status Last (Trade) Ordered Route PRN Stop Time Admin Dose Reason Admin Aspirin 162 mg ONCE STAT 10/14/18 DC 10/14/18 (Aspirin) PO 16:33 10/14/18 17:22 16:34 Lorazepam 0.5 mg ONCE ONCE 10/14/18 DC 10/14/18 (Ativan) PO 17:00 10/14/18 17:22 17:01 Sodium 500 ml @ Q1H STAT 10/14/18 DC 10/14/18 Chloride 500 mls/hr IV 18:22 10/14/18 19:36 19:21 Procedures/MDM EMERGENT LABS AND DIAGNOSTIC STUDIES: Lab Results above were reviewed and interpreted by me. CBC: no anemia or evidence of infection BMP: Elevated BUN and creatinine, consistent with chronic renal insufficiency. no e/o clinically significant electrolyte abnormality severe acidosis, alkalosis, diabetic ketoacidosis Troponin within normal limits, not indicative of cardiac ischemia 12-lead EKG was interpreted by Jeffery Jimenes MD: Normal Sinus Rhythm with ventricular rate of 76 beats per minute Normal axis Normal intervals No acute ST or T wave changes suggestive of acute ischemia or STEMI. Radiology Results as interpreted by Radiology below were reviewed by SChelsey Jimenes MD: Chest x-ray: No acute abnormalities Initial Nursing notes reviewed. Previous Medical Records requested via the Electronic Health Record. EMERGENCY DEPARTMENT COURSE / MEDICAL DECISION MAKING: Patient is presenting with multiple symptoms concerning for anxiety attack. I did consider ACS, dissection, PE, pneumonia, pneumothorax, but I have a lower suspicion for these. Given her history, work-up was done to evaluate for cardiopulmonary pathology. EKG did not show any evidence of ischemia or arrhy thmia. Chest x-ray was unremarkable. Labs did not show any significant abnormalities other than known history of chronic renal insufficiency. Patient was treated with oral Ativan with significant improvement and near resolution of all of her symptoms. Patient agrees that she was having a panic attack. I recommended she discuss this with her primary care doctor as this is happened several times and she may need medication to control her symptoms. Patient is agreeable with this plan. Strict return precautions given. At this time, I do not feel she needs admission for any further work-up. Follow-up with PCP recommended within 2 to 3 days. Patient's blood pressure was elevated (>120/80) but appears stable without evidence of hypertensive emergency or urgency. The patient was counseled about the risks of hypertension and urged to pursue outpatient monitoring and therapy within a week with their primary care physician. Departure Diagnosis: Primary Impression: Chest pain Chest pain type: unspecified Qualified Codes: R07.9 - Chest pain, unspecified Additional Impressions: Chronic renal insufficiency Chronic kidney disease stage: unspecified stage Qualified Codes: N18.9 - Chronic kidney disease, unspecified Anxiety Condition: Stable MARIXA JIMENES MD Oct 14, 2018 16:50
[2018-10-14] MEDS ORDERED: LORAZEPAM 0.5 MG TAB PO ONE (17:00)
[2018-10-14] MEDS ORDERED: SOD CHLORIDE 0.9% 500 ML IV STA (18:22)
[2018-10-14 20:10] VITALS: BP 144/57; PULSE 71; RESP 16
== END 2018-10-14 20:47 | disposition home or self-care (01) ==
LOC: E/R 15:44
DX: I12.9 Hypertensive chronic kidney disease with stage 1 through stage 4 chronic kidney disease, or unspecified chronic kidney disease (principal); N18.9 Chronic kidney disease, unspecified; F41.9 Anxiety disorder, unspecified; E11.22 Type 2 diabetes mellitus with diabetic chronic kidney disease; Z79.4 Long term (current) use of insulin; Z86.73 Personal history of transient ischemic attack (TIA), and cerebral infarction without residual deficits; Z95.0 Presence of cardiac pacemaker
CPT/HCPCS: 36415; 71045; 80048; 84484; 85025; 93005; 96360; 99285; J7040